=== PATIENT | female | born 2000 | race Caucasian/White ===

== ENCOUNTER 2021-12-17 01:11 | Emergency (ER) | payer MEDICARE, SELFPAY ==
--- NOTE | ~2021-12-17 | CT_ITS ---
EXAMINATION: CT abdomen pelvis wo con DATE: 12/17/2021 03:39 INDICATION: Polyuria, urinary frequency, urinary tract infection. History of ectopic. TECHNIQUE: Computed tomography (CT) of the abdomen and pelvis was performed without intravenous contr ast. Automated exposure control and iterative reconstruction technique were employed. Exam dose: 455 .49 mGy-cm total exam DLP. COMPARISON: None. FINDINGS: The lung bases are clear. Heart size is normal. No pericardial or pleural effusion. The liver, gallbladder, bile ducts, spleen, pancreas and pancreatic duct are unremarkable. Normal morphology of the adrenal glands. No renal mass lesion or urinary tract calculus or hydroureteronephrosis. The urinary bladder, uterus and adnexal areas are unremarkable except for bilateral tubal ligation. Trace free fluid in the right dependent lower pelvis.. Normal caliber of the abdominal aorta. No periaortic, aortocaval or pelvic lymphadenopathy. Shotty no nenlarged mesenteric lymph nodes are noted which may be due to mesenteric adenitis. No bowel obstruction is detected. No intraperitoneal free air. No appendicitis is suggested. Small fat-containing umbilical hernia. Included skeletal structures are unremarkable. IMPRESSION: Nonspecific nonenlarged mesenteric lymph nodes, possibly due to mesenteric adenitis Reviewed, dictated and finalized at [facility]. Reviewed, dictated and finalized at [facility]. IMPRESSION: Nonspecific nonenlarged mesenteric lymph nodes, possibly due to me senteric adenitis
[2021-12-17 01:12] VITALS: BP 125/85; PULSE 75; RESP 18; TEMP 36.4; O2SAT 100
[2021-12-17 02:10] LABS: Appearance Urine Clear (Clear); Bilirubin Urine 1+ (Negative); Blood Urine 3+ (Negative); Color Urine Yellow (Yellow); Glucose Urine UA Trace mg/dL (Negative); Ketones Urine Negative (Negative); Leukocyte Esterase Ur Negative LEU/UL (Negative); Mucus Urine Heavy /lpf; Nitrate Urine Negative (Negative); Protein Urine 1+ mg/dL (Negative); Specific Grav Ur >= 1.030 (1.001-1.035); Squamous Epithelial Cell Urine Many /hpf (Few); pH Urine 6.5 (5.0-9.0)
[2021-12-17 02:11] LABS: Add Urine Microscopic? YES
--- NOTE | 2021-12-17 02:14 | ED.FEMALEGU ---
HPI - Female Genitourinary General Chief complaint: Urogenital-Female <Jessica Pearl PA-C - Last Filed: 12/17/21 03:44> Stated complaint: UTI <JAKC Motta Last Filed: 12/17/21 03:44> Time Seen by Provider: 12/17/21 02:02 <AJCK Motta Last Filed: 12/17/21 03:44> Source: patient <JACK Motta Last Filed: 12/17/21 03:44> Mode of arrival: ambulatory <JACK Motta Last Filed: 12/17/21 03:44> Limitations: no limitations <JACK Motta Last Filed: 12/17/21 03:44> History of Present Illness HPI Narrative: Patient is a 21-year-old female who presents to the ED with report of urinary symptoms. Patient reports having a foul odor to her urine, urinary frequency with small void urines for the past few days. She is concerned she may have a UTI or yeast infection. She notes a history of yeast infection. Denies any significant dysuria or hematuria that she was able to see. She developed pain in her lower back and lower abdomen today, which prompted her presentation to the ED. No fever, chills, nausea, vomiting, rectal bleeding, diarrhea, constipation. Mother at bedside reports patient had twins via section 9 months ago. She had a tubal ligation afterwards. She then had a miscarriage reportedly in October. She was seen at a hospital in [place] at that time. Denies hearing the word ectopic , but states she was told she was . Patient started her menstrual cycle today. <JACK Motta Last Filed: 12/17/21 03:44> Related Data Allergies/Adverse reactions: Allergies Allergy/AdvReac Type Severity Reaction Status Date / Time No Known Allergies Allergy Verified 12/17/21 01:42 <JACK Motta Last Filed: 12/17/21 03:44> Review of Systems Review of Systems: CONSTITUTIONAL: Denies fever, chills, or sweats. CARDIOVASCULAR: Denies chest pain. RESPIRATORY: Denies dyspnea. GASTROINTESTINAL: Reports lower ABD pain. Denies nausea, vomiting, or diarrhea. GENITOURINARY: Reports urinary frequency with small void urine, malodorous urine. Denies dysuria or hematuria. MUSCULOSKELETAL: Reports low back pain. NEUROLOGIC: Denies headache, numbness, or weakness. <Jessica Pearl PA-C - Last Filed: 12/17/21 03:44> All systems reviewed & are unremarkable except as noted in HPI and below <Jessica Pearl PA-C - Last Filed: 12/17/21 03:44> PMFSH Past Medical History Medical History: Medical History (Updated 12/17/21 @ 04:42 by Hung Astudillo MD) History of miscarriage <Jessica Pearl PA-C - Last Filed: 12/17/21 03:44> Surgical History Surgical History: Surgical History (Updated 12/17/21 @ 03:28 by Jessica Pearl PA-C) History of section <Jessica Pearl PA-C - Last Filed: 12/17/21 03:44> Social History Social History: Social History (Updated 12/17/21 @ 03:28 by Jessica Pearl PA-C) Smoking status: Never smoker <Jessica Pearl PA-C - Last Filed: 12/17/21 03:44> Exam Narrative: GENERAL: Well appearing, well-nourished, non-toxic, in no acute distress. HEAD: Normocephalic, atraumatic. NECK: Supple. No adenopathy, no masses. RESPIRATORY: Airway patent, respirations nonlabored. Clear to auscultation bilaterally, no rales, rhonchi, wheezing. CARDIOVASCULAR: Regular rate and rhythm without murmurs, rubs, or gallops. Peripheral pulses 2+ and equal bilaterally. ABDOMINAL: Soft, tenderness to palpation in right upper quadrant, right lower quadrant, suprapubic region. Nondistended, no hepatosplenomegaly. Normoactive BS. No significant CVA tenderness to percussion. MUSCULOSKELETAL: Moves all extremities. Strength/ROM intact without gross deformities. Mild tenderness to palpation in bilateral paraspinal musculature in the lumbosacral region. SKIN: Warm, dry, normal color. No rashes. NEURO: A&O X3. Speech clear. Cranial nerves II-XII grossly intact. Steady gait. No ataxic movements. P
[2021-12-17] MEDS: FLUCONAZOLE 150 MG TABLET PO (02:46)
[2021-12-17 05:05] VITALS: BP 124/89; PULSE 67; RESP 16; O2SAT 99
== END 2021-12-17 05:00 | disposition home or self-care (01) ==
PROVIDERS: Emergency Provider Emergency Medicine
DX: N30.01 Acute cystitis with hematuria (principal); I88.0 Nonspecific mesenteric lymphadenitis
CPT/HCPCS: 74176; 81001; 81025; 87086; 87088; 99284; A9270